=== PATIENT | male | born 2000 | race Caucasian/White ===

== ENCOUNTER 2020-04-06 12:38 | Emergency (ER) | payer BC, SELFPAY ==
[2020-04-06 13:47] VITALS: BP 144/87; PULSE 74; RESP 18; TEMP 36.6; O2SAT 100; BMI 25.0
--- NOTE | 2020-04-06 13:48 | HMH.EDUTC ---
[facility] [place] Disposition Clinical Impression: Exposure to COVID-19 virus Disposition: Home, Self-Care Condition on Discharge: Good Instructions: Preventing the Spread of Coronavirus Discharge Instructions Additional Instructions: Drink plenty of fluids. Take tylenol for pain or fever. Follow up with your regular doctor. GO TO THE ER FOR ANY WORSENING SYMPTOMS FOLLOW THE DIRECTIONS ON THE COVID-19 HAND OUT THAT WE GAVE YOU REGARDING SELF-ISOLATION UNTIL YOU KNOW YOUR COVID-19 RESULTS Referrals: PCP,No [Primary Care Provider] - Time of Disposition: 13:50 Medical Decision Making - Medical Records Medical records reviewed: No: I reviewed the patient's medical records. - Pasquale Inquiry Pt receiving controlled substance: No Vital Signs: 04/06/20 13:47 04/06/20 13:55 Temperature 97.8 F 97.8 F Temperature Source Oral Pulse Rate 74 Pulse Rate [Right Brachial] 74 Respiratory Rate 18 18 Blood Pressure 144/87 H Blood Pressure [Right Arm] 144/87 H Blood Pressure Mean [Right Arm] 106 Blood Pressure Source [Right Arm] Automatic Cuff Blood Pressure Position [Right Arm] Sitting 02 Sat by Pulse Oximetry 100 Oxygen Delivery Method Room Air Orders (Tests/Meds): ORDERS Category Date Time Status Covid-19 Nasal PCR ([facility]) Routine Lab 04/06/20 13:30 Received [facility] [place] HPI - General Stated complaint: covid exposure Time Seen by Provider: 04/06/20 13:48 - History of Present Illness Provider Complaint: He states that he was exposed to covid-19 thru a house-hold contact. He denies any symptoms at this time except that he is having a headache. - Related Data Allergies Allergy/AdvReac Type Severity Reaction Status Date / Time No Known Allergies Allergy Verified 04/06/20 13:50 [facility] History - Hepatitis A Screen Attestation statement:: This patient has been screened for Hepatitis A risk factors. I have reviewed the patient's past medical history: Yes ROS Obtained: Yes All systems reviewed & no additional complaints - Constitutional Constitutional: Reports system reviewed and no additional complaints, except as docu - Eyes Eyes: Reports system reviewed and no additional complaints, except as docu - ENT Ears, Nose, Mouth, and Throat: Reports system reviewed and no additional complaints, except as docu - Cardiovascular Cardiovascular: Reports system reviewed and no additional complaints, except as docu - Respiratory Respiratory: Yes system reviewed and no additional complaints, except as docu - Gastrointestinal Gastrointestingal: Reports: system reviewed and no additional complaints, except as docu Physical Exam - General General appearance: alert, in no apparent distress - Head Head exam: atraumatic, normocephalic, normal inspection - Eye Eye exam: Present: normal appearance, PERRL, EOMI - ENT ENT exam: Present: normal exam, normal oropharynx, mucous membranes moist, TM's normal bilaterally, normal external ear exam - Neck Neck exam: Present: normal inspection, full ROM, trachea midline. Absent: meningismus, lymphadenopathy - Chest Chest inspection: Present: normal inspection, symmetric chest wall rise. Absent: tenderness - Respiratory Respiratory exam: Present: normal lung sounds bilaterally. Absent: respiratory distress - Cardiovascular Cardiovascular exam: Present: regular rate, normal rhythm. Absent: JVD - Abdominal Exam Abdominal exam: Present: soft, normal bowel sounds. Absent: distention, tenderness, guarding - Extremities Exam Extremities exam: Present: normal inspection, full ROM, normal capillary refill. Absent: calf tenderness - Back Exam Back exam: Present: normal inspection. Absent: tenderness - Neurological Exam Neurological exam: Present: alert, oriented X3 - Psychiatric Psychiatric exam: Present: normal affect, normal mood - Skin Skin exam: Present: warm, dry, intact, normal color - Lymphatic Lymphatic Findings:
[2020-04-06 13:55] VITALS: BP 144/87; PULSE 74; RESP 18; TEMP 36.6; O2SAT 100
--- NOTE | 2020-04-06 18:11 | PC.NURSE ---
PATIENT NOTIFIED OF POSITIVE COVID TEST
== END 2020-04-06 14:05 | disposition home or self-care (01) ==
PROVIDERS: Emergency Provider Nurse Practitioner Family; PCP Pediatrics
DX: U07.1 COVID-19 (principal); R03.0 Elevated blood-pressure reading, without diagnosis of hypertension
CPT/HCPCS: 99201; U0003